=== PATIENT | male | born 1960 | race Caucasian/White ===

== ENCOUNTER 2020-04-01 17:54 | Emergency (ER) | payer OTHER, BC ==
--- NOTE | 2020-04-01 18:26 | EDM.PDOC ---
ED HPI GENERAL MEDICAL PROBLEM - General Chief Complaint: Lower Extremity Injury/Pain Stated Complaint: LEFT ANKLE INJURY Time Seen by Provider: 04/01/20 18:15 Source of Information: Reports: Patient History Limitations: Reports: No Limitations - History of Present Illness INITIAL COMMENTS - FREE TEXT/NARRATIVE: 59-year-old male that was coming down off a ladder and fell the last 4 feet landing hard on the bottom of his left foot. He had significant pain right away, he does not think he turned the ankle. He has intense pain over the medial malleolus and heel. He bears a very little if any weight without significant pain. He is starting to develop some ecchymosis under the medial malleolus. This happened 8 hours ago. No other injury or complaints. Onset: Sudden Duration: Hour(s): (8 hours ago) Location: Reports: Lower Extremity, Left Associated Symptoms: Reports: No Other Symptoms - Related Data Allergies Allergy/AdvReac Type Severity Reaction Status Date / Time hydrochlorothiazide Allergy Pain Verified 04/01/20 18:14 [id number]-Dnp Reductase Allergy Muscle Verified 04/01/20 18:14 Inhibitor Aches Sulfa (Sulfonamide Allergy Rash Verified 04/01/20 18:14 Antibiotics) Home Meds: Home Meds Aspirin 325 mg PO DAILY 04/01/20 [History] Cyanocobalamin (Vitamin B12) [Vitamin B12] 1,000 mcg PO DAILY 04/01/20 [History] Ezetimibe 10 mg PO DAILY 04/01/20 [History] Fish Oil/[place]-3 Fatty Acids [Fish Oil 1,000 MG] 1 g PO DAILY 04/01/20 [History] Insulin Detemir [Levemir Flextouch] 60 unit SUBCNJ ASDIRECTED 04/01/20 [History] Insulin Lispro [Humalog] 1 - 30 unit SUBCNJ ASDIRECTED PRN 04/01/20 [History] Ubidecarenone [Co Q-10] 10 mg PO DAILY 04/01/20 [History] amLODIPine [Norvasc] 5 mg PO DAILY 04/01/20 [History] atenoloL [Atenolol] 100 mg PO DAILY 04/01/20 [History] metFORMIN HCl [Metformin HCl] 1,000 mg PO BID 04/01/20 [History] Past Medical History Cardiovascular History: Reports: High Cholesterol, Hypertension Genitourinary History: Reports: Renal Calculus Endocrine/Metabolic History: Reports: Diabetes, Type II Social & Family History - Tobacco Use Smoking Status *Q: Unknown Ever Smoked Review of Systems - Review of Systems Review Of Systems: See Below Constitutional: Denies: Fever Respiratory: Denies: Shortness of Breath Cardiovascular: Denies: Chest Pain GI/Abdominal: Denies: Nausea, Vomiting Skin: Reports: Bruising (Bruising is developed around the medial ankle.) Neurological: Denies: Paresthesia Psychiatric: Reports: No Symptoms ED EXAM, GENERAL - Physical Exam Exam: See Below Exam Limited By: No Limitations General Appearance: Alert, No Apparent Distress, Other (Fairly comfortable while sitting with his foot up and not bearing weight) Head: Atraumatic Respiratory/Chest: Lungs Clear Cardiovascular: Regular Rate, Rhythm GI/Abdominal: Soft, Non-Tender Extremities: Other (Exam of the left foot reveals extreme tenderness to palpation over the medial malleolus but no deformity or crepitus. There is some bruising developing with mild swelling. He also has significant tenderness to lateral compression of the calcaneus again no crepitus. The forefoot is nontender) Psychiatric: Normal Affect, Normal Mood Course - Vital Signs Last Recorded V/S: Last Vital Signs Temp 97.2 F 04/01/20 18:21 Pulse 79 04/01/20 18:21 Resp 16 04/01/20 18:21 BP 181/82 H 04/01/20 18:21 Pulse Ox 94 L 04/01/20 18:21 - Orders/Labs/Meds Orders: Active Orders 24 hr Category Date Time Status DME for Discharge [COMM] Stat Oth 04/01/20 20:06 Ordered - Re-Assessments/Exams Free Text/Narrative Re-Assessment/Exam: 04/01/20 18:25 Due to the possibility of a calcaneal or midfoot fracture along with a tibia fracture, a CT of the foot was obtained. 04/01/20 20:04 Impression: 1. No definite fracture. No dislocation. 2. Fat stranding within the medial subcutaneous tissues consistent with edema as well as a minimal ankle effusion. In this setting, if there is persistent pain, MRI would have improved sensitivity for soft tissue injuries as well as occult fracture. Above findings were discussed with the patient and Dr. Coughlin. Patient was placed in a walking boot and asked to rest his foot through the weekend and recheck with Dr. Coughlin next week if not improving satisfactorily. Departure - Departure Time of Disposition: 20:40 Disposition: Home, Self-Care 01 Clinical Impression: Sprain of left ankle Qualifiers: Encounter type: initial encounter Involved ligament of ankle: deltoid ligament Qualified Code(s): S93.422A - Sprain of deltoid ligament of left ankle, initial encounter - Discharge Information Instructions: Ankle Sprain, [id number] Referrals: PCP,None [Primary Care Provider] - Forms: ED Department Discharge Care Plan Goals: Wrap foot for support and to reduce swelling, wear boot for protection and rest foot if possible. A regular dose of ibuprofen will help with discomfort, and increase activity as tolerated. Recheck with Dr. Coughlin next week if not improving satisfactorily, call Tuesday for an appointment time. Sepsis Event Note (ED) - Evaluation Sepsis Screening Result: No Definite Risk - Focused Exam Vital Signs: Vital Signs Temp Pulse Resp BP Pulse Ox 04/01/20 18:21 97.2 F 79 16 181/82 H 94 L 04/01/20 18:12 97.2 F 79 16 181/82 H 94 L - My Orders Last 24 Hours: My Active Orders 04/01/20 20:06 DME for Discharge [COMM] Stat - Assessment/Plan Last 24 Hours: My Active Orders 04/01/20 20:06 DME for Discharge [COMM] Stat
--- NOTE | 2020-04-01 19:45 | CRLCT ---
Indication: Left heel and ankle injury Technique: Noncontrast axial images were obtained through the left ankle and foot with coronal and sagittal reformatted images performed on the scanner. Comparison: None Findings: Osseous structures: Minimal ossifications adjacent to the lateral malleolus which appears well corticated measuring 3 millimeters as well as an adjacent 1 millimeter fragment. Largest of these appears well corticated consistent with an ossicle or old avulsion fragment while the 1 millimeter ossification could represent some dystrophic calcification or an age-indeterminate avulsion fragment. No definite fracture seen. Joint space: No dislocation. Minimal ankle effusion. Soft tissues: Small plantar and Achilles heel spurs. Atherosclerosis. Fat stranding within the medial soft tissues adjacent to the medial malleolus. Impression: 1. No definite fracture. No dislocation. 2. Fat stranding within the medial subcutaneous tissues consistent with edema as well as a minimal ankle effusion. In this setting, if there is persistent pain, MRI would have improved sensitivity for soft tissue injuries as well as occult fracture. Please note that all CT scans at this facility use dose modulation, iterative reconstruction, and/or weight-based dosing when appropriate to reduce radiation dose to as low as reasonably achievable. Dictated by Param Ghotra MD @ Apr 01 2020 7:34PM Signed by Dr. Param Ghotra @ Apr 01 2020 7:43PM
== END 2020-04-01 20:40 | disposition home or self-care (01) ==
LOC: JP.ED 17:54
DX: S93.422A Sprain of deltoid ligament of left ankle, initial encounter (principal); E11.9 Type 2 diabetes mellitus without complications; I10 Essential (primary) hypertension; Z79.4 Long term (current) use of insulin; Z79.899 Other long term (current) drug therapy; Z79.82 Long term (current) use of aspirin; Z88.8 Allergy status to other drugs, medicaments and biological substances; Z88.2 Allergy status to sulfonamides; W11.XXXA Fall on and from ladder, initial encounter
CPT/HCPCS: 73700-LT; 99283-25

== ENCOUNTER 2024-02-13 14:54 | Emergency (ER) | payer MEDICARE, OTHER ==
[2024-02-13 15:57] LABS: BASOPHILS ABSOLUTE AUTO 0.08 K/uL (0.00-0.10); BASOPHILS PERCENT AUTO 1.1 % (0.1-1.3); EOSINOPHILS PERCENT AUTO 2.6 % (0.0-5.4); HEMATOCRIT 40.2 % (38.4-49.7); HEMOGLOBIN 14.1 g/dL (12.9-16.9); IMMATURE GRAN PERCENT AUTO 0.3 % (0.0-0.7); LYMPHOCYTES PERCENT AUTO 21.2 % (11.4-47.7); MEAN CORPUSCULAR HEMOGLOBIN 29.4 pg (31.6-35.5); MEAN CORPUSCULAR HGB CONC 35.1 g/dL (31.6-35.5); MEAN CORPUSCULAR VOLUME 83.9 fL (81.4-99.0); MONOCYTES ABSOLUTE AUTO 0.61 K/uL (0.20-0.90); MONOCYTES PERCENT AUTO 8.1 % (3.3-12.6); NEUTROPHILS ABSOLUTE AUTO 5.04 K/uL (1.0-7.6); NEUTROPHILS PERCENT AUTO 66.7 % (40.0-78.1); PLATELET COUNT,PLT 220 K/uL (130-375); RED BLOOD CELL COUNT 4.79 M/uL (4.14-5.76); WHITE BLOOD CELL COUNT,WBC 7.6 K/uL (3.2-11.0)
[2024-02-13 15:58] LABS: IMMATURE GRAN ABSOLUTE AUTO 0.02 K/uL (0.00-0.23)
[2024-02-13 16:20] LABS: CALCIUM 8.8 mg/dL (8.5-10.1); EST CRCL DRUG DOSING (CG) 78.44 mL/min; POTASSIUM,K 3.5 mmol/L (3.6-5.2); TROPONIN I HIGH SENSITIVITY 6.1 pg/mL (<=60.3)
[2024-02-13 16:21] LABS: ANION GAP 12.5 mmol/L (5.0-14.0)
== END 2024-02-13 16:50 | disposition home or self-care (01) ==
LOC: JP.ED 14:54
DX: M79.622 Pain in left upper arm (principal); I10 Essential (primary) hypertension; E11.9 Type 2 diabetes mellitus without complications; Z87.891 Personal history of nicotine dependence; Z86.16 Personal history of COVID-19; Z79.4 Long term (current) use of insulin; Z79.84 Long term (current) use of oral hypoglycemic drugs; Z79.82 Long term (current) use of aspirin; Z79.899 Other long term (current) drug therapy; Z88.2 Allergy status to sulfonamides; Z88.8 Allergy status to other drugs, medicaments and biological substances
CPT/HCPCS: 36415; 80048; 84484; 85025; 93005; 99283